=== PATIENT | female | born 1995 | race Caucasian/White ===

== ENCOUNTER 2019-01-31 17:38 | Emergency (ER) | payer OTHER ==
[2019-01-31 18:10] VITALS: BP 114/66
--- NOTE | 2019-01-31 18:21 | UC ---
Headache HPI - HPI Summary HPI Summary: Comes in with chief complaint of chronic headaches and being out of her headache medications because she just moved here from [place] she is not established with a neurologist yet here. Patient suffered from migraines her whole life. She has a headache right now. She is out of her topiramate and Imitrex. - History Of Current Complaint Chief Complaint: UCHeadache Stated Complaint: MEDICATION REFILL Time Seen by Provider: 01/31/19 17:53 Hx Last Menstrual Period: has IUD Pain Intensity: 6 - Allergies/Home Medications Allergies/Adverse Reactions: Allergies Allergy/AdvReac Type Severity Reaction Status Date / Time No Known Allergies Allergy Verified 01/31/19 18:10 Home Medications: Home Medications Iud 01/31/19 [History] Propranolol HCl [Propranolol HCl ER] 60 mg PO DAILY 01/31/19 [History Confirmed 01/31/19] SUMAtriptan TAB* [Imitrex TAB*] 100 mg PO SEE INSTRUCTIONS PRN 01/31/19 [ History Confirmed 01/31/19] Topiramate XR (NF) [Trokendi Xr] 100 mg PO DAILY 01/31/19 [History Confirmed ] Venlafaxine HCl 3 tab PO DAILY 01/31/19 [History Confirmed 01/31/19] PMH/Surg Hx/FS Hx/Imm Hx Previously Healthy: Yes Neurological History: Migraine - Surgical History Surgical History: None - Family History Known Family History: Positive: Non-Contributory - Social History Alcohol Use: Rare Substance Use Type: None Smoking Status (MU): Never Smoked Tobacco Review of Systems All Other Systems Reviewed And Are Negative: Yes Constitutional: Positive: Negative Skin: Positive: Negative Eyes: Positive: Negative ENT: Positive: Negative Respiratory: Positive: Negative Cardiovascular: Positive: Negative Gastrointestinal: Positive: Negative Motor: Positive: Negative Neurovascular: Positive: Negative Musculoskeletal: Positive: Negative Neurological: Positive: Headache Psychological: Positive: Negative Is Patient Immunocompromised?: No Physical Exam Triage Information Reviewed: Yes Appearance: Well-Appearing, Well-Nourished Vital Signs: Initial Vital Signs Temp 97.8 F 01/31/19 17:59 Pulse 76 01/31/19 17:59 Resp 16 01/31/19 17:59 BP 114/66 01/31/19 17:59 Pulse Ox 100 01/31/19 17:59 Neck: Positive: Supple Respiratory: Positive: Lungs clear, Normal breath sounds, No respiratory distress Cardiovascular: Positive: RRR Musculoskeletal: Positive: Strength Intact, ROM Intact Neurological: Positive: Alert, Muscle Tone Normal Psychological: Positive: Age Appropriate Behavior Skin Exam: Normal Headache Course/Dx - Differential Dx/Diagnosis Provider Diagnosis: Headache Discharge - Sign-Out/Discharge Documenting (check all that apply): Patient Departure All imaging exams completed and their final reports reviewed: No Studies - Discharge Plan Condition: Stable Disposition: HOME Prescriptions: SUMAtriptan TAB* [Imitrex TAB*] 100 mg PO SEE INSTRUCTIONS #30 tab MDD 200mg Topiramate [Topiramate ER] 100 mg PO DAILY #30 [id number] Patient Education Materials: Migraine Headache (ED) Referrals: Carlos Johnston MD [Medical Doctor] - Additional Instructions: FOLLOW UP WITH DR JOHNSTON, NEUROLOGY. GET REEVALUATED SOONER IF WORSE OR ANY QUESTIONS OR CONCERNS. - Billing Disposition and Condition Condition: STABLE Disposition: Home
== END 2019-01-31 18:31 | disposition home or self-care (01) ==
LOC: UCCORT 17:38
DX: R51 Headache (principal); Z76.0 Encounter for issue of repeat prescription; Z88.0 Allergy status to penicillin; Z88.1 Allergy status to other antibiotic agents
CPT/HCPCS: 99201; G0463

== ENCOUNTER 2019-03-21 17:59 | Emergency (ER) | payer OTHER ==
[2019-03-21 18:44] VITALS: BP 110/74
--- NOTE | 2019-03-21 19:30 | ED ---
Psychiatric Complaint - HPI Summary HPI Summary: 23 yr old female with the complaint of anxiety, depression, poor sleep, and appetite. She denies homicidal or suicidal ideation. She ran out of her meds a few days ago. She has not seen psychiatry or neurology or primary care in 11 months since leaving [place]. Her doctors down [facility] fill her scripts any more for her. - History Of Current Complaint Chief Complaint: UCGeneralIllness Time Seen by Provider: 03/21/19 19:10 Hx Last Menstrual Period: HAS AND IUD, DOES NOT HAVE REG PERIODS - Allergies/Home Medications Allergies/Adverse Reactions: Allergies Allergy/AdvReac Type Severity Reaction Status Date / Time No Known Allergies Allergy Verified 03/21/19 18:26 Home Medications: Home Medications Topiramate [Trokendi Xr] 50 mg PO 03/21/19 [History] PMH/Surg Hx/FS Hx/Imm Hx Psychiatric History: Reports: Hx Depression Infectious Disease History: No Infectious Disease History: Denies: Traveled Outside the in Last 30 Days - Family History Known Family History: Positive: None, Non-Contributory - Social History Occupation: Employed Full-time Alcohol Use: Rare Substance Use Type: Reports: None Smoking Status (MU): Never Smoked Tobacco Review of Systems Constitutional: Negative Positive: Anxious, Depressed All Other Systems Reviewed And Are Negative: Yes Physical Exam Triage Information Reviewed: Yes Vital Signs On Initial Exam: Initial Vitals Temp Pulse Resp BP Pulse Ox 97.7 F 58 18 110/74 100 03/21/19 18:36 03/21/19 18:36 03/21/19 18:36 03/21/19 18:36 03/21/19 18:36 Vital Signs Reviewed: Yes Appearance: Positive: Well-Appearing, No Pain Distress Skin: Positive: Warm, Skin Color Reflects Adequate Perfusion Head/Face: Positive: Normal Head/Face Inspection Eyes: Positive: EOMI, MAGGIE ENT: Positive: Normal ENT inspection Neck: Positive: Supple, Nontender Respiratory/Lung Sounds: Positive: Clear to Auscultation, Breath Sounds Present Cardiovascular: Positive: RRR. Negative: Murmur Abdomen Description: Negative: Distended Musculoskeletal: Positive: Strength/ROM Intact Neurological: Positive: Sensory/Motor Intact, Alert, Oriented to Person Place, Time, CN Intact II-III, Normal Gait, Speech Normal Psychiatric: Positive: Normal Diagnostics - Vital Signs Vital Signs Temp Pulse Resp BP Pulse Ox 03/21/19 18:36 97.7 F 58 18 110/74 100 - Laboratory Lab Statement: Any lab studies that have been ordered have been reviewed, and results considered in the medical decision making process. Course/Dx - Course Course Of Treatment: 23 yr old female with no primary, psych or neurology doctors. She will go to the ER for further work up, psych eval. Not suicidal or homicidal. She was offered ambulance, but her significant other is driving and wants to take her to [facility] [place]. - Differential Dx/Clinical Impression Provider Diagnosis: Depression, Encounter for medication refill Discharge ED - Sign-Out/Discharge Documenting (check all that apply): Patient Departure All imaging exams completed and their final reports reviewed: No Studies - Discharge Plan Condition: Good Disposition: HOME-RECOMMEND TO ED Patient Education Materials: Depression (ED) Referrals: No Primary Care Phys,NOPCP [Primary Care Provider] - [facility] REFERRAL [Outside] - 1 Day Additional Instructions: YOU NEED TO GO TO THE ER FOR FURTHER EVALUATION AND WORK UP AND CONSULTATION. YOU HAVE BEEN OFFERED AN AMBULANCE BUT YOUR SIGNIFICANT OTHER STATES HE WILL DRIVE YOU. - Billing Disposition and Condition Condition: GOOD Disposition: Home-Recommend to ED
== END 2019-03-21 19:34 | disposition home health service (06) ==
LOC: UCCORT 17:59
DX: F32.9 Major depressive disorder, single episode, unspecified (principal); Z76.0 Encounter for issue of repeat prescription
CPT/HCPCS: 99212; G0463